=== PATIENT | female | born 1985 | race Caucasian/White ===

== ENCOUNTER → 2024-01-15 | Outpatient (CLI) | payer BC, SELFPAY ==
[2024-01-15 17:44] LABS: Absolute Neutrophil Count 3.5 X10^3/uL (2.0-7.7); Basophil# 0.05 X10^3/uL; Basophil% 0.8 % (0-1); Eosinophil# 0.08 X10^3/uL; Eosinophils% 1.2 % (0-5); Hematocrit 40.2 % (37-47); Hemoglobin 13.2 g/dL (12.0-15.0); Lymphocyte % 35.6 % (19-41); Mean Corp Hgb Conc 32.8 g/dL (32-36); Mean Corpuscular Hgb 28.8 pg (27.0-32.0); Mean Corpuscular Volume 87.6 fL (81-99); Mean Platelet Vol. 11.5 fl (6.2-12.0); Monocyte# 0.47 X10^3/uL; Monocyte% 7.3 % (0-10); NRBC Flagged by Analyzer 0 % (0-5); Neutrophil # 3.54 X10^3/uL (2.7-7.7); Neutrophil % 54.8 % (47-70); Platelet Count 329 K/mm3 (150-450); RBC Distribution Width CV 12.5 % (11.6-14.6); RBC Distribution Width SD 39.9 fl (35.1-43.9); Red Blood Count 4.59 M/mm3 (4.2-5.4); White Blood Count 6.5 K/mm3 (4.4-11.0)
[2024-01-15 18:20] LABS: Vitamin D,25 Hydroxy 44.3 ng/mL
[2024-01-15 18:49] LABS: ALB/GLOB Ratio 1.1 RATIO (0.9-2.4); AST(SGOT) 19 U/L (15-37); Alanine Aminotransfer ALT/SGPT 31 U/L (13-56); Albumin, Serum 3.9 g/dL (3.2-5.0); Alkaline Phosphatase 67 U/L (45-117); Amylase 48 U/L (25-115); Anion Gap 5 (5-15); BUN 9 mg/dL (7-18); BUN/Creat Ratio 11.6 RATIO (10-20); Calcium,Total 9.2 mg/dL (8.5-10.1); Chloride 105 mmol/L (98-107); Cholesterol 241 mg/dL (200); Creatinine, Serum 0.77 mg/dL (0.55-1.02); EST Glomerular Filtration Rate 89 mL/min (>60); Est Glom Filt Rate - Afr Amer 108 mL/min (>60); Globulin 3.7 g/dL (2.2-4.2); Glucose 108 mg/dL (74-106); High Density Lipoprotein 53 mg/dL; Potassium 3.4 mmol/L (3.5-5.1); Protein, Total 7.6 g/dL (6.4-8.2); Sodium Level 137 mmol/L (136-145); Thyroid Stim Hormone (TSH) 1.11 uIU/mL (0.358-3.74); Triglycerides 213 mg/dL; Very Low Density Lipoprotein 43 mg/dL (5-40)
[2024-01-19 15:07] LABS: Deamidated Gliadin IgA 5 units (0-19); Deamidated Gliadin IgG 2 units (0-19); Endomysial Antibody IgA Negative (Negative); Immunoglobulin A 272 mg/dL (87-352); t-Transglutaminase IgA <2 U/mL (0-3)
== END | disposition home or self-care (01) ==
LOC: MFPLAB 16:02
PROVIDERS: Visit Provider Family Medicine
DX: R10.9 Unspecified abdominal pain (principal); R03.0 Elevated blood-pressure reading, without diagnosis of hypertension
CPT/HCPCS: 36415; 80053; 80061; 82150; 82306; 82784; 83516; 84443; 85025; 86255

== ENCOUNTER → 2024-04-21 | Outpatient (CLI) | payer BC, SELFPAY ==
[2024-04-21 12:13] LABS: Potassium 3.8 mmol/L (3.5-5.1)
== END | disposition home or self-care (01) ==
PROVIDERS: PCP Family Medicine; Referring Provider Family Medicine; Visit Provider Family Medicine
DX: E87.6 Hypokalemia (principal)
CPT/HCPCS: 36415; 84132

== ENCOUNTER → 2024-09-16 | Outpatient (CLI) | payer BC, SELFPAY ==
--- NOTE | 2024-09-16 17:07 | RAD_ITS ---
STUDY: X-RAY - LUMBAR SPINE REASON FOR EXAM: Female, 39 years old. Acute on chronic back pain. TECHNIQUE: 2 view(s) of the lumbar spine were obtained. COMPARISON: None FINDINGS: Normal lumbar lordosis. There is no substantial scoliosis. There is a normal alignment of the vertebrae. Normal vertebral bodies and endplates. Normal disc space heights. The soft tissue structures are normal. RAD/Lumbar Spine 2 or 3 Views IMPRESSION: Normal x-ray examination of the lumbar spine. Electronically Signed: Dylan Silvestre MD at 16:44 EST ,
--- NOTE | 2024-09-16 17:07 | RAD_ITS ---
STUDY: X-RAY - THORACIC SPINE REASON FOR EXAM: Female, 39 years old. Acute back pain. TECHNIQUE: 2 view(s) of the thoracic spine were obtained on 3 images. COMPARISON: None. FINDINGS: Normal kyphosis of the thoracic spine. There is no substantial scoliosis. Schmorl''s node at T12, a normal variant. Mild diffuse intervertebral disc space narrowing without osteophytes. The soft tissue structures are normal.. RAD/Thoracic Spine 2 Views IMPRESSION: Mild diffuse intervertebral disc space narrowing. No other abnormality. Electronically Signed: Dylan Silvestre MD at 16:43 EST ,
--- NOTE | 2024-09-16 17:10 | RAD_ITS ---
STUDY: X-RAY - RIGHT KNEE REASON FOR EXAM: Female, 39 years old. PAIN TECHNIQUE: 4 views of the right knee. COMPARISON: None. FINDINGS: Normal visualized distal femur. Normal visualized proximal tibia and fibula. Normal proximal tibiofibular articulation. There is no demonstrated acute fracture. Normal medial femorotibial compartment. Normal lateral femorotibial compartment. Normal patellofemoral articulation. There is smooth osseous fragmentation adjacent to the tibial tubercle, probably the sequelae of remote [place]-Schlatter''s disease. There is a small right knee joint effusion. The soft tissue structures are unremarkable. RAD/Knee 4 or More Views IMPRESSION: Smooth osseous fragmentation adjacent to the tibial tubercle, probably the sequelae of remote [place]-Schlatter''s disease. Small right knee joint effusion. No demonstrated acute fracture. Electronically Signed: Derrick Radford MD at 14:01 EST ,
== END | disposition home or self-care (01) ==
PROVIDERS: PCP Family Medicine; Referring Provider Family Medicine; Visit Provider Family Medicine
DX: M54.9 Dorsalgia, unspecified (principal); M25.561 Pain in right knee; G89.29 Other chronic pain
CPT/HCPCS: 72070; 72100; 73564

== ENCOUNTER → 2025-01-12 | Outpatient (CLI) | payer BC, SELFPAY ==
--- NOTE | 2025-01-12 16:32 | US_ITS ---
PROCEDURE: KIDNEY AND BLADDER 01/12/2025 REASON FOR EXAM: UTI TECHNIQUE: Bilateral renal and bladder ultrasound. COMPARISON: None available FINDINGS: The right kidney measures 11.4 x 4.5 x 4.5 cm with a cortical thickness of 1.9 cm. The left kidney measures 11 x 5.4 x 5.1 cm with a cortical thickness of 2.4 cm. The kidneys appear within limits for echogenicity without hydronephrosis, renal stone or perinephric edema seen. Bladder volume 232 cc. Bladder wall appears within limits a 2 mm. Bilateral ureteral jets are noted during imaging. Postvoid bladder volume 4 cc. No free fluid seen. US/Kidney and Bladder IMPRESSION: Study appears within limits. Reading Location: [id number]
== END | disposition home or self-care (01) ==
LOC: US 16:30
PROVIDERS: PCP Family Medicine; Referring Provider Urology; Visit Provider Urology
DX: N39.0 Urinary tract infection, site not specified (principal)
CPT/HCPCS: 76770

== ENCOUNTER → 2025-01-29 | Outpatient (CLI) | payer BC, SELFPAY ==
--- NOTE | 2025-01-29 11:00 | MRI_ITS ---
PROCEDURE: SPINE CERVICAL (ROUTINE) 01/29/2025 REASON FOR EXAM: CHRONIC NECK PAIN WITH DEGENERATIVES TECHNIQUE: Multiplanar and multisequence images were obtained without IV contrast administration. COMPARISON: none FINDINGS: Straightening of cervical spine curve denoting muscle spasm. Preserved vertebral bodies height. No vertebral fractures or dislocation. Normal craniometric measures of the craniovertebral junction Multilevel anterior marginal osteophytic lipping and subchondral degenerative marrow signal/Modio II of the examined vertebral end plates. Variable degrees of reduced bright T2 signal of the intervertebral discs. C1-C2: Atlantodens interval is preserved. Odontoid process and atlantoaxial joint appear normal. Mild atlanto-axial degenerative changes. C2-C3: There is no significant disc pathology. Normal morphology of the ligamentum flava. No arthropathy of the uncovertebral joints. No significant spinal canal stenosis noted. C3-C4: a 2 mm diffuse disc bulge along with bilateral uncovertberal arthropathy indenting the theca encroaching upon the related neural exit foramina inducing moderate exiting nerve roots compression. C4-C5: a 2.5 mm diffuse disc bulge along with bilateral uncovertberal arthropathy indenting the cord encroaching upon the related neural exit foramina inducing moderate to marked exiting nerve roots compression. C5-C6: a 3.5 mm diffuse disc bulge with focal central posterior disc protrusion showing caudal inclination along with bilateral uncovertberal arthropathy indenting the cord encroaching upon the related neural exit foramina inducing moderate to marked exiting nerve roots compression. C6-C7: a 4 mm diffuse disc bulge with right paracentral focal posterior disc protrusion along with bilateral uncovertberal arthropathy indenting the cord encroaching upon the related neural exit foramina inducing moderate to marked exiting nerve roots compression. C7-T1: There is no significant disc pathology. Normal morphology of the ligamentum flava. No arthropathy of the uncovertebral joints. No significant spinal canal stenosis noted. Normal appearance of the examined cervical cord and cranio-cervical junction. No marrow infiltrative lesions. No paraspinal soft tissue masses. MRI/Spine Cervical (Routine) IMPRESSION: Straightening of cervical curve denoting myospasm. C3-C4: a 2 mm diffuse disc bulge along with bilateral uncovertberal arthropathy inducing moderate exiting nerve roots compression. C4-C5: a 2.5 mm diffuse disc bulge along with bilateral uncovertberal arthropat hy inducing moderate to marked exiting nerve roots compression. C5-C6: a 3.5 mm diffuse disc bulge with focal central posterior disc protrusion showing caudal inclination along with bilateral uncovertberal arthropathy inducing moderate to marked exiting nerve roots compr ession. C6-C7: a 4 mm diffuse disc bulge with right paracentral focal posterior disc p rotrusion along with bilateral uncovertberal arthropathy inducing moderate to marked exiting nerve roots compression. Reading [facility]
== END | disposition home or self-care (01) ==
LOC: MRI 10:49
PROVIDERS: PCP Family Medicine; Referring Provider Family Medicine; Visit Provider Family Medicine
DX: M54.2 Cervicalgia (principal)
CPT/HCPCS: 72141

== ENCOUNTER → 2025-03-15 | Outpatient (CLI) | payer BC, SELFPAY ==
--- NOTE | 2025-03-15 16:34 | US_ITS ---
PROCEDURE: PELVIC W/ TRANSVAGINAL REASON FOR EXAM: PELVIC PAIN TECHNIQUE: PELVIC W/ TRANSVAGINAL COMPARISON: None FINDINGS: LMP: February 20, 2025 Measurements: Uterus: 8.4 cm x 5.8 cm x 5.4 cm with a volume of 142 mL Endometrial Thickness: 9 mm hyperechoic. Right Ovary: 2.5 cm x 2 cm x 1.7 cm with a volume of 4.47 mL. Left Ovary: 3.1 cm x 2.3 cm x 2.2 cm with a volume of 8.07 mL. TRANSABDOMINAL: Uterus: Normal size, myometrial echotexture, and contour. Endometrium: Homogeneously thickened. Right ovary: Normal size and echotexture. Left ovary: Normal size and echotexture. Other: No large pelvic mass identified. Transvaginal sonography was performed to better visualize the endometrium. TRANSVAGINAL: Uterus: Anteverted. Normal contour and myometrial echotexture. Endometrium: Normal echotexture. Right ovary: Normal size and echotexture. Left ovary: Normal size and echotexture. Other adnexal findings: None. Cul-de-sac: No free intraperitoneal fluid identified. Tenderness: No tenderness US/Pelvic w/ Transvaginal IMPRESSION: Unremarkable pelvic sonogram. Reading Location: [place] [id number]
== END | disposition home or self-care (01) ==
LOC: US 16:32
PROVIDERS: PCP Family Medicine; Referring Provider Nurse Practitioner Women's Health; Visit Provider Nurse Practitioner Women's Health
DX: R10.2 Pelvic and perineal pain (principal)
CPT/HCPCS: 76830; 76856

== ENCOUNTER → 2025-04-05 | Outpatient (CLI) | payer BC, SELFPAY ==
--- NOTE | 2025-04-05 11:13 | RAD_ITS ---
PROCEDURE: ABDOMEN SINGLE VIEW 04/05/2025 REASON FOR EXAM: SITZ MARKER DAY 3 TECHNIQUE: ABDOMEN SINGLE VIEW COMPARISON: No FINDINGS: Clear lung bases. No free air. Nonobstructed bowel. Large stool. Numerous Sitz markers are seen in the proximal half of the large bowel. No concerning calcifications. RAD/Abdomen Single View IMPRESSION: Sitz markers in the proximal half of the large bowel. Large stool. Reading [facility]
== END | disposition home or self-care (01) ==
LOC: RAD 11:07
PROVIDERS: PCP Family Medicine
DX: K59.00 Constipation, unspecified (principal); R10.2 Pelvic and perineal pain
CPT/HCPCS: 74018

== ENCOUNTER → 2025-04-07 | Outpatient (CLI) | payer BC, SELFPAY | END | disposition home or self-care (01) | LOC: RAD 11:20 | PROVIDERS: PCP Family Medicine | DX: R10.2 Pelvic and perineal pain (principal); K59.00 Constipation, unspecified | CPT/HCPCS: 74018 ==

== ENCOUNTER → 2025-05-04 | Outpatient (CLI) | payer BC, SELFPAY ==
--- NOTE | 2025-05-04 18:45 | CT_ITS ---
PROCEDURE: ABDOMEN/PELVIS WITH CONTRAST 05/04/2025 REASON FOR EXAM: CONSTIPATION, PELVIC FLOOR PAIN TECHNIQUE: ABDOMEN/PELVIS WITH CONTRAST Coronal and Sagittal reconstruction series were provided. CONTRAST: Isovue-300, 100 mL. One or more dose reduction techniques were used (e.g., Automated exposure control, adjustment of the mA and/or kV according to patient size, use of iterative reconstruction technique. RADIATION DOSE SUMMARY: CTDlvol: 34.19 mGy DLP: 1211.70 mGycm COMPARISON: None. FINDINGS: Lung bases: The lung bases are clear. There are no pleural effusions. The heart size is normal. There is no pericardial effusion. There is no calcific vascular disease of the coronary arteries evident. Liver: Normal size. No mass. Gallbladder: Surgically absent. Spleen: Normal size. Pancreas: Normal size without evidence of mass surrounding inflammation or ductal dilation. Adrenals: Normal. Kidneys: Normal renal sizes. No hydronephrosis. Bladder: Normal unenhanced appearance. Reproductive Organs: Normal uterine size and contour. There is a benign nabothian cyst. There is a right corpus luteum cyst. The left ovary is unremarkable. There is no free fluid in the pelvis. There are few reactive inguinal lymph nodes bilaterally. Bowel: There is stool in the distal half of the colon. Appendix: Normal. Lymph nodes: No suspicious lymph node enlargement. Vasculature: The abdominal aorta and IVC are normal. Peritoneum / Retroperitoneum: There are no abnormal intra or retroperitoneal masses or fluid collections. Bones: There are no significant bony abnormalities. CT/Abdomen/Pelvis WITH Contrast IMPRESSION: 1. Mild constipation. 2. Right corpus luteum cyst. 3. Otherwise unremarkable. Reading Location: [id number]
== END | disposition home or self-care (01) ==
LOC: CT 16:55
PROVIDERS: PCP Family Medicine
DX: R10.2 Pelvic and perineal pain (principal); K59.00 Constipation, unspecified
CPT/HCPCS: 74177; Q9967

== ENCOUNTER → 2025-05-10 | Outpatient (CLI) | payer BC, SELFPAY ==
--- NOTE | 2025-05-10 11:51 | RAD_ITS ---
PROCEDURE: HIP, UNI W/ PELVIS 2-3 VIEWS 05/10/2025 REASON FOR EXAM: PAIN IN HIP TECHNIQUE: Procedure Code: RAD Modality: DX Procedure: HIP, UNI W/ PELVIS 2-3 VIEWS COMPARISON: None. FINDINGS: The bony pelvis is intact. The SI joints are normal. The visualized lumbar spine is unremarkable. The soft tissues of the pelvis are unremarkable. AP and lateral views of the left hip demonstrate no evidence of fracture or dislocation. There are no joint space abnormalities. The periarticular soft tissues are normal. RAD/HIP, UNI W/ Pelvis 2-3 Views IMPRESSION: Normal pelvis and left hip. Reading Location: [id number]
[2025-05-10 15:29] LABS: Hematocrit 39.5 % (37-47); Hemoglobin 13.2 g/dL (12.0-15.0); Immature Granulocytes Count 0.040 X10^3/uL (0.0-0.0); Mean Corp Hgb Conc 33.4 g/dL (32-36); Mean Corpuscular Volume 87.4 fL (81-99); Mean Platelet Vol. 11.1 fl (6.2-12.0); NRBC Flagged by Analyzer 0 % (0-5); Platelet Count 312 K/mm3 (150-450); RBC Distribution Width CV 12.9 % (11.6-14.6); RBC Distribution Width SD 41.1 fl (35.1-43.9); Red Blood Count 4.52 M/mm3 (4.2-5.4); White Blood Count 7.4 K/mm3 (4.4-11.0)
[2025-05-10 16:06] LABS: Follicle Stimulating Hormone 2.6 mIU/mL
[2025-05-14 16:08] LABS: Estrogen, Total, Serum 599 pg/mL (.)
== END | disposition home or self-care (01) ==
PROVIDERS: PCP Family Medicine; Referring Provider Family Medicine; Visit Provider Family Medicine
DX: N95.1 Menopausal and female climacteric states (principal); R79.89 Other specified abnormal findings of blood chemistry; M25.552 Pain in left hip
CPT/HCPCS: 73502; 82672; 83001; 83002; 85025